=== PATIENT | female | born 1945 | race Caucasian/White ===

== ENCOUNTER 2023-08-19 09:12 | Emergency (ER) | payer OTHER, SELFPAY ==
[2023-08-19] VITALS (9 sets, daily range): BP systolic 113–135; BP diastolic 52–70; PULSE 65–68; BMI 28.4
--- NOTE | 2023-08-19 09:39 | ED.GENMED ---
History of Present Illness
<Sachi Salas PA-C - Last Filed: 08/19/23 17:37>
General
Chief Complaint: Dizziness
Source: patient
Exam Limitations: none
Time Seen by Provider: 08/19/23 09:19
Nursing documentation reviewed up to this point in time: agreed with
Travel History
Have you had any contact with someone who has COVID-19?: No
Do you have any symptoms of coronavirus? Fever > 100 degrees, chills, cough, shortness of breath, sore throat, loss of taste or smell, muscle aches, or headache?: No
History of Present Illness
History of Present Illness:
Patient is a 78-year-old female with history COPD, hypertension, hyperlipidemia, frequent UTIs presenting to emergency department via EMS for evaluation of lightheadedness and associated nausea. She states that she got up from bed this morning
around 830 to use the bathroom, had a severe leg cramp in her left lower leg and then proceeded to feel very lightheaded. She also endorses nausea. She did not lose consciousness. She was able to call for help and get back to her bed. Patient
denies any associated chest pain, shortness of breath, dizziness during this episode. At this time�she endorses a dull headache and a lingering lightheaded feeling. Nausea has somewhat improved�she was given 4 mg Zofran in EMS.
Patient recently finished course of Macrobid for a UTI that has been somewhat persistent since middle of July. She denies any fever, chills, dysuria, urinary frequency.
Past History
<Sachi Salas PA-C - Last Filed: 08/19/23 17:37>
Past History
ED Past Medical History: Asthma, COPD, HTN, Hypercholesterolemia and Psychiatric (Anxiety, depression)
ED Past Surgical History: Appendectomy, Orthopedic, Tonsilectomy and Other (Endarterectomy/subclavian bypass)
Social History
Tobacco: Non-smoker
Employment: Retired
Phy Exam
<Sachi Salas PA-C - Last Filed: 08/19/23 17:37>
Physical Exam
Physical Exam:
General: In no apparent distress, non-toxic appearing
Vitals: Vital signs stable, afebrile
HEENT: Atraumatic, normocephalic; pupils equal round and reactive light bilaterally, extraocular muscle intact, protecting airway
Neck: appears supple, no JVD, trachea midline
CV: Regular rate and rhythm, no evidence of cyanosis
Resp: No evidence of respiratory stress, lungs clear bilaterally
Abd: Soft, nontender in all 4 quadrants, non-distended
Extremities: No deformities, no evidence of cyanosis or edema; DP pulses palpable and equal bilaterally
Neuro: alert and oriented x 3; speech normal; strength 5 out of 5 in upper and lower extremities, sensation fully intact, no gross neurologic deficits, normal [id number]
Psych: Normal affect
Skin: Intact, no rashes
Course
<Sachi Salas PA-C - Last Filed: 08/19/23 17:37>
Orders/Labs/Results
Orders:
Orders
08/19/23 09:17
EKG [Electrocardiogram (*1)] Urgent
Reason for Study: Fatigue / Weakness
EKG- Treatment ONCE
08/19/23 09:44
Acetaminophen [Tylenol] 650 mg PO NOW STA
08/19/23 09:55
Basic Metabolic Panel Urgent
Complete Blood Count/With Diff Urgent
08/19/23 10:08
Urinalysis Reflex To Culture Urgent
Date Specimen was Collected: 08/19/23
Time Specimen was Collected: 10:03
Urine Microscopic Reflex Cult Urgent
08/19/23 10:47
Ibuprofen [Motrin] 400 mg PO NOW STA
08/19/23 10:49
Comprehensive Metabolic Panel Urgent
08/19/23 11:26
Orthostatic VS- Treatment ONCE
Abnormal Lab Results
08/19/23 08/19/23 08/19/23
09:55 10:08 10:49
MCHC 32.8 L g/dL
(33.0-37.0)
Absolute Monos (auto) 0.7 H 10^3/uL
(0.1-0.6)
Monocytes % 11.4 H %
(1.7-9.3)
Glucose 110 H mg/dl 120 H mg/dl
(70-99) (70-99)
AST 128 H U/L
(14-36)
ALT 148 H U/L
(0-35)
Leukocyte Esterase Rfl Trace A
(Negative)
Urine RBC 3-6 A /HPF
(0-2)
Urine Bacteria (Reflex) Few A
(Negative)
08/19/23 09:55
08/19/23 10:49
Vital Signs
Initial and Last Documented VS:
Initial Vital Signs
BP
130/67
08/19/23 09:15
Last Documented Vital Signs
Temp Pulse Resp BP Pulse Ox
97.8 F 65 16 131/67 97
08/19/23 09:17 08/19/23 12:37 08/19/23 12:37 08/19/23 12:37 08/19/23 12:37
<Arden Lynn, DO - Last Filed: 08/19/23 09:56>
Orders/Labs/Results
Orders:
Orders
08/19/23 09:17
EKG [Electrocardiogram (*1)] Urgent
Reason for Study: Fatigue / Weakness
EKG- Treatment ONCE
08/19/23 09:44
Acetaminophen [Tylenol] 650 mg PO NOW STA
08/19/23 09:55
Basic Metabolic Panel Urgent
Complete Blood Count/With Diff Urgent
08/19/23 10:08
Urinalysis Reflex To Culture Urgent
Date Specimen was Collected: 08/19/23
Time Specimen was Collected: 10:03
Urine Microscopic Reflex Cult Urgent
08/19/23 10:47
Ibuprofen [Motrin] 400 mg PO NOW STA
08/19/23 10:49
Comprehensive Metabolic Panel Urgent
08/19/23 11:26
Orthostatic VS- Treatment ONCE
Abnormal Lab Results
08/19/23 08/19/23 08/19/23
09:55 10:08 10:49
MCHC 32.8 L g/dL
(33.0-37.0)
Absolute Monos (auto) 0.7 H 10^3/uL
(0.1-0.6)
Monocytes % 11.4 H %
(1.7-9.3)
Glucose 110 H mg/dl 120 H mg/dl
(70-99) (70-99)
AST 128 H U/L
(14-36)
ALT 148 H U/L
(0-35)
Leukocyte Esterase Rfl Trace A
(Negative)
Urine RBC 3-6 A /HPF
(0-2)
Urine Bacteria (Reflex) Few A
(Negative)
08/19/23 09:55
08/19/23 10:49
Vital Signs
Initial and Last Documented VS:
Initial Vital Signs
BP
130/67
08/19/23 09:15
Last Documented Vital Signs
Temp Pulse Resp BP Pulse Ox
97.8 F 65 16 131/67 97
08/19/23 09:17 08/19/23 12:37 08/19/23 12:37 08/19/23 12:37 08/19/23 12:37
<Sachi Salas PA-C - Last Filed: 08/19/23 17:37>
MDM/Problems Addressed
Differential Diagnosis Includes:
Not limited to: Orthostatic hypotension, vasovagal syncope, hyponatremia, hypoglycemia, UTI, viral illness,
MDM/Problems Addressed:
Patient is 78-year-old female with history as documented presenting for evaluation of near syncopal event this morning. Denies any chest pain or shortness of breath. Vital signs are stable, she is afebrile. Physical exam as documented above. She
is very well-appearing, moist mucous membranes. Heart rate regular, lungs clear on exam. There are no focal neurologic deficits. Patient does report that she was experiencing lightheadedness, not dizziness. Abdomen soft and nontender. Patient
does have history of hyponatremia requiring admission to hospital�will check basic labs, EKG. Will check urinalysis given frequent UTIs over the past 2 months although patient does deny any urinary symptoms at this time. Given lack of any
neurologic deficits and history�highly doubt acute intracranial process or CVA.
EKG shows sinus bradycardia without any signs of ischemia. CBC without any clinically significant abnormalities. CMP with mild transaminitis which is chronic per patient. Electrolytes all within normal range. Urinalysis shows no signs of acute
infection. Patient has remained essentially asymptomatic throughout her time in the emergency department. Will check orthostatic vital signs, anticipate discharge.
Orthostatic vital signs noted. No evidence of orthostatic hypotension. Patient reports improvement in symptoms after eating lunch box in emergency department. she is stable for discharge with close return precautions, primary care follow-up. All
questions answered.
Chronic conditions affecting care:
N/A
Acute Exacerbation and/or Progression of Chronic Illness:
N/A
<Sachi Salas PA-C - Last Filed: 08/19/23 17:37>
*Pulse Oximetry
Patient hypoxic: no
*EKG
Interpreted by ED Provider?: Yes
EKG Intrepretation Date: 08/19/23
Interpretation: abnormal
Comparison EKG: changes noted
Heart Rate: 53
Rate: bradycardiac
Rhythm: sinus
Ischemia: no ischemia
*Cold Food Packer Interpretation
Rate: normal
Interpretation: normal
Heart Rate: 62
Rhythm: sinus
*Critical Care Note
Total Time (30-74mins, 75-104mins- exclusive of procedures): Not Applicable
Data Reviewed
Review of Other/Old Records Reveals: Labs, Records, Progress Notes and Discharge Summary
Source: patient and previous hospital records
ED Attending Note
<Sachi Salas PA-C - Last Filed: 08/19/23 17:37>
-
Portions of this chart may have been created with voice recognition software.� Occasional wrong word or��sound alike� substitutions may have occurred due to the inherent limitations of voice recognition software.
<Arden Lynn DO - Last Filed: 08/19/23 09:56>
ED Attending Note
Patient seen and examined by attending physician: Yes
I performed the substantive portion of visit, reviewed & personally made and approve the management plan that is documented in note by myself or TRICIA.: Yes
ED Attending Note:
I have seen and evaluated the patient with a nohu-ex-ifke encounter. I have spoken to the advance practicer provider and involved in the medical history, the physical exam, medical decision making.
Evaluation and management service: agree unless noted differently below.
Results interpretation: agree unless noted differently below.
Focused HPI: 78-year-old female presenting with lightheadedness. This occurred when she stood up quickly. Patient denies chest pain or shortness of breath. Patient is unsure if this is another UTI. She has increased urinary frequency but just
finished dose of Macrobid. When questioned whether or not she has follow-up with urology, she has. Patient states that the urologist wanted to place a pessary. We discussed that the symptoms will likely continue until the pelvic floor dysfunction
is fixed
Physical exam: Sitting in bed comfortably. Moist mucous membranes. Normal finger-nose bilaterally
Medical Decision Making: Given her prior history of hyponatremia, will obtain basic blood work. Will repeat urinalysis. EKG nonischemic.
Discharge Plan
Departure
Patient Disposition: Home (Routine Discharge)
Date of Disposition: 08/19/23
Time of Disposition: 11:56
Patient with high blood pressure during this ER visit?: No
Condition: Good
Covid-19: Not Applicable
Discharge Problem:
Lightheadedness
Instructions: Near Fainting (DC)
Prescriptions:
No Action
aspirin [Aspir-Low] 81 MG tablet,delayed release (DR/EC)
81 mg PO HS
amlodipine 10 MG tablet
10 mg PO DAILY
valsartan [Diovan] 320 MG tablet
320 mg PO DAILY
albuterol sulfate 1 PUFF HFA aerosol inhaler
2 puff inhalation R Q4HPRN PRN (Reason: asthma)
fluticasone propionate 1 SPRAY spray,suspension
1 spray intranasal DAILY
rosuvastatin 40 MG tablet
40 mg PO DAILY
escitalopram oxalate 5 MG tablet
10 mg PO HS
duloxetine 20 MG capsule,delayed release(DR/EC)
20 mg PO HS
magnesium oxide 500 MG capsule
150 mg PO DAILY
vitamin E (dl, acetate) 400 UNITS capsule
400 units PO DAILY
calcium citrate-vitamin D3 [Citracal + D Maximum] 1 EACH tablet
4 ea PO DAILY
bqdpgmpswoqg-npvb-bmxrg acid [Centrum] 1 EACH tablet
1 ea PO DAILY
prasterone (dhea)-calcium carb [DHEA] 1 EACH tablet
1 ea PO DAILY
coQ10 (ubiquinol) 100 MG capsule
100 mg PO DAILY
umeclidinium-vilanterol [Anoro Ellipta] 1 EACH blister with device
1 ea IH DAILY
Desonide
0.05 topical BID
Flax Oil
1 cap PO DAILY
Innated Adrenal Response
2 tab PO DAILY
Restasis 0.05% Ophthalmic Emulsion:
1 drp ophthalmic (eye) BID
acetaminophen 325 MG tablet
650 mg PO Q4HPRN PRN (Reason: mild pain or temp >/= 100.4 F) 0RF
meclizine 25 MG tablet
25 mg PO TID PRN (Reason: Dizziness) Qty: 15 0RF
ondansetron 4 MG tablet,disintegrating
4 mg PO Q8 PRN (Reason: Nausea) Qty: 15 0RF
cholecalciferol (vitamin D3) [Vitamin D3] 400 UNITS tablet
2,500 units PO DAILY
riboflavin (vitamin B2) 400 MG tablet
400 mg PO DAILY
guaifenesin [Mucus Relief ER] 600 MG tablet extended release 12hr
600 mg PO Q12
cyclobenzaprine 10 MG tablet
5 mg PO BIDPRN PRN (Reason: back spasm) Qty: 10 0RF
lidocaine [Aspercreme (lidocaine)] 1 PATCH adhesive patch,medicated
1 patch topical DAILY Qty: 30 0RF
furosemide 20 MG tablet
10 mg PO DAILY Qty: 15 0RF
Adrenal Tissue Bovine Lyophili
100 mg PO DAILY
Referrals:
Carlos Collado CRNP [Family Provider] - Follow up in 5-7 days
Activity Restrictions/Additional Instructions:
- Return to the emergency department for any severe headache, high fevers, severe abdominal pain, persistent nausea/vomiting, persistent lightheadedness, fainting, chest pain, shortness of breath, worsening current symptoms, or any other concerns
-It is important that you stay well-hydrated.
-As discussed�you should follow-up with your primary care provider for further evaluation/management
Interventions
Interventions:
*Risk Screen - Suicide Last Done: 08/19/23 09:21
*General Assessment Last Done: 08/19/23 09:21
*Neglect/Abuse Screening Last Done: 08/19/23 09:21
ED- Fall Risk Assessment Last Done: 08/19/23 12:37
*ED COVID-19 Vaccine History Last Done: 08/19/23 09:20
*Nursing Disposition Last Done: 08/19/23 12:37
ED- Neurological Assessment Last Done: 08/19/23 09:22
ED- Cardiac Assessment Last Done: 08/19/23 09:22
ED Swallowing Screen Last Done: 08/19/23 09:43
Discharge Date and Time
Discharge Date/Time: 08/19/23 13:17
Print Language: ALBANIAN
[2023-08-19 10:07] LABS: % Eosinophils 3.3 % (0-6); % Immature Granulocytes 0.3 % (0-0.5); % Lymphocytes 30.9 % (20.5-51.1); % Monocytes 11.4 % (1.7-9.3); % Neutrophils 53.1 % (42.2-75.2); Absolute Basophils 0.1 10^3/uL (0-0.2); Absolute Eosinophils 0.2 10^3/uL (0-0.7); Absolute Lymphocytes 1.8 10^3/uL (1.2-3.4); Absolute Monocytes 0.7 10^3/uL (0.1-0.6); Absolute Neutrophils 3.1 10^3/uL (1.4-6.5); Hematocrit 39.3 % (37.0-47.0); Hemoglobin 12.9 g/dL (12.0-16.0); Mean Corp Hgb Conc. 32.8 g/dL (33.0-37.0); Mean Corpuscular Volume 88.3 fL (81.0-99.0); Mean Platelet Volume 9.7 fL (7.4-10.4); Nucleated Red Blood Cells % 0 %; Platelet Count 307 10^3/uL (130-400); Red Blood Cell Count 4.45 10^6/uL (4.20-5.40); Red Cell Dist. Width 14.4 % (11.5-14.5); White Blood Cell Count 5.8 10^3/uL (4.8-10.8)
[2023-08-19 10:20] LABS: Urine Albumin Negative (Neg - Trace); Urine Bilirubin Negative (Negative); Urine Character Clear (Clear); Urine Color Yellow; Urine Glucose Negative (Negative); Urine Ketone Negative (Negative); Urine Leukocyte Trace (Negative); Urine Nitrite Negative (Negative); Urine Occult Blood Negative (Negative); Urine Specific Gravity 1.005 (<1.030); Urine Urobilinogen Negative (Neg - 1+)
[2023-08-19 10:30] LABS: Blood Urea Nitrogen 15 mg/dl (7-17); Calcium 9.4 mg/dl (8.4-10.2); Carbon Dioxide 23 mmol/L (22-30); Chloride 105 mmol/L (98-107); Estimated Creatinine Clearance 70 ml/min; Glucose 110 mg/dl (70-99); Sodium 135 mmol/L (135-145); eGFR > 60.00
[2023-08-19 10:32] LABS: Urine Bacteria Few (Negative); Urine White Cell 0-2 /HPF (0-5)
[2023-08-19] MEDS: MOTRIN 400 MG PO (10:51)
[2023-08-19 11:08] LABS: ALT (SGPT) 148 U/L (0-35); AST (SGOT) 128 U/L (14-36); Albumin 4.2 g/dl (3.5-5.0); Alkaline Phosphatase 82 U/L (38-126); Blood Urea Nitrogen 14 mg/dl (7-17); Calcium 9.4 mg/dl (8.4-10.2); Carbon Dioxide 25 mmol/L (22-30); Chloride 106 mmol/L (98-107); Estimated Creatinine Clearance 70 ml/min; Glucose 120 mg/dl (70-99); Potassium 4.5 mmol/L (3.5-5.1); Sodium 135 mmol/L (135-145); Total Bilirubin 0.7 mg/dl (0.2-1.3); Total Protein 6.9 g/dl (6.3-8.2); eGFR > 60.00
== END 2023-08-19 13:17 | disposition home or self-care (01) ==
LOC: EMR 09:12
PROVIDERS: Physician Assistant; EMERGENCY PHYSICIAN Student in an Organized Health Care Education/Training Program; FAMILY PHYSICIAN Nurse Practitioner Family
DX: R42 Dizziness and giddiness (principal); I10 Essential (primary) hypertension; E78.00 Pure hypercholesterolemia, unspecified; Z87.440 Personal history of urinary (tract) infections
CPT/HCPCS: 99284; 80048; 80053; 81003; 81015; 85025; 93005

== ENCOUNTER → 2023-08-28 12:52 | Outpatient (REF) | payer OTHER, SELFPAY | LOC: MRI 3T 12:52 | PROVIDERS: ATTENDING PHYSICIAN Internal Medicine Gastroenterology | DX: K76.0 Fatty (change of) liver, not elsewhere classified (principal) | CPT/HCPCS: 74183; A9575 ==

== ENCOUNTER → 2023-09-04 06:23 | Day surgery (SDC) | payer OTHER, SELFPAY | LOC: GI 06:23 | PROVIDERS: ATTENDING PHYSICIAN Internal Medicine Gastroenterology | DX: Z12.11 Encounter for screening for malignant neoplasm of colon (principal); D12.4 Benign neoplasm of descending colon; D12.5 Benign neoplasm of sigmoid colon; K64.8 Other hemorrhoids; K29.70 Gastritis, unspecified, without bleeding; K22.89 Other specified disease of esophagus; K44.9 Diaphragmatic hernia without obstruction or gangrene; K30 Functional dyspepsia; Z86.010 Personal history of colon polyps | CPT/HCPCS: 45385; 43239; 88305; 88342 ==

== ENCOUNTER 2023-10-06 06:34 | Day surgery (SDC) | payer OTHER, SELFPAY ==
[2023-10-06 13:00] VITALS: BMI 27.1
[2023-10-06 13:01] VITALS: BP 163/78
[2023-10-06 15:47] VITALS: BP 131/66
[2023-10-06 16:00] VITALS: BP 146/47
[2023-10-06 16:15] VITALS: BP 156/69
== END 2023-10-06 16:30 | disposition home or self-care (01) ==
LOC: GI 06:34
PROVIDERS: ATTENDING PHYSICIAN Internal Medicine Gastroenterology
DX: K86.9 Disease of pancreas, unspecified (principal); K80.20 Calculus of gallbladder without cholecystitis without obstruction; R59.1 Generalized enlarged lymph nodes
CPT/HCPCS: 43237; 88172; 88173; 88305; 88177

== ENCOUNTER → 2023-11-27 11:03 | Outpatient (REF) | payer OTHER, SELFPAY | LOC: WDC 11:03 | PROVIDERS: ATTENDING PHYSICIAN Nurse Practitioner Family | DX: Z12.31 Encounter for screening mammogram for malignant neoplasm of breast (principal); Z78.0 Asymptomatic menopausal state | CPT/HCPCS: 77080 ==

== ENCOUNTER → 2024-11-23 12:50 | Outpatient (REF) | payer OTHER, SELFPAY | LOC: RCS 12:50 | PROVIDERS: ATTENDING PHYSICIAN Internal Medicine Cardiovascular Disease; FAMILY PHYSICIAN Nurse Practitioner Family | DX: I65.22 Occlusion and stenosis of left carotid artery (principal); I10 Essential (primary) hypertension; E78.00 Pure hypercholesterolemia, unspecified | CPT/HCPCS: 93306 ==